=== PATIENT | male | born 1995 | race Two or more races ===

== ENCOUNTER 2022-03-06 09:00 | Emergency (ER) | payer OTHER ==
[~2022-03-06] VITALS: Ht 180.3 cm; Wt 86.2 kg
[2022-03-06] MEDS ORDERED: TDAP [DIPH/PERTUSSIS/TET] 0.5 ML VIAL IM ONE ×2 (09:30→09:32)
[2022-03-06] MEDS ORDERED: LIDOCAINE 1%-EPI 1:100,000 20 ML VIAL TP ONE (09:30)
[2022-03-06] MEDS ORDERED: LIDOCAINE 1%-EPI 1:100,000 20 ML VIAL ONE (09:31)
--- NOTE | 2022-03-06 09:37 | NUR ---
wound care done
--- NOTE | 2022-03-06 09:37 | NUR ---
DT /boostrix given IM - left deltoid
--- NOTE | 2022-03-06 09:44 | NUR ---
DR. WILKERSON AT BEDSIDE
--- NOTE | 2022-03-06 10:02 | NUR ---
Laceration-sutured at bedside by Dr. Baca
[2022-03-06 10:18] VITALS: BP 131/89
--- NOTE | 2022-03-06 10:18 | NUR ---
Patient discharged to home in stable condition. Written and verbal after care instructions given. Patient verbalizes understanding of instruction.
== END 2022-03-06 10:19 | disposition home or self-care (01) ==
LOC: ER 09:02
DX: S61.512A Laceration without foreign body of left wrist, initial encounter (principal); X58.XXXA Exposure to other specified factors, initial encounter; Y93.89 Activity, other specified; Y92.89 Other specified places as the place of occurrence of the external cause; Y99.8 Other external cause status
CPT/HCPCS: 99283; 12004; 90471; 90715; A4649; J3490